=== PATIENT | male | born 1945 | race Caucasian/White ===

== ENCOUNTER 2017-11-12 11:02 | Inpatient (IN) | payer OTHER ==
--- NOTE | 2017-11-12 11:16 | PDOC ---
History of Present Illness - General Chief Complaint: Urinary Problem Stated Complaint: URINARY RETENTION Time Seen by Provider: 11/12/17 11:10 History Source: Patient Exam Limitations: No Limitations - History of Present Illness Initial Comments: 11/12/17 11:12 72y M hx of htn, bph (not on meds), presents with complaint of urinary retention. Pt notes he has not urinated since going to bed on . Pt notes significant lower abdominal pain, denies any fever/chills, n/v, dysuria, back pain diarrhea. no hx of retention before. no new meds recently beside takign tumeric for his arthritis Past History - Past Medical History Allergies/Adverse Reactions: Allergies Allergy/AdvReac Type Severity Reaction Status Date / Time No Known Allergies Allergy Verified 11/12/17 11:28 Home Medications: Ambulatory Orders Escitalopram Oxalate [Lexapro -] 10 mg PO DAILY 11/12/17 Metoprolol Succinate [Toprol Xl] 50 mg PO DAILY 11/12/17 Serzone (Non-Formulary) - HS 11/12/17 Triamterene/Hydrochlorothiazid [Triamterene-Hctz 37.5-25 mg Tb] 1 each PO DAILY 11/12/17 Review of Systems - Review of Systems Able to Perform ROS?: Yes Comments:: 11/12/17 11:59 Constitutional - no reported Fever, Chills, HEENT: no reported vision changes, sore throat Respiratory: no reported cough, sob, hemoptysis Cardiac: no reported chest pain, palpitations, light headedness, leg swelling Abd/GI: no reported abd pain, nausea, vomiting, blood per rectum, melena, diarrhea : +urinary retention no reported dysuria, frequency, discharge Musculskelatal - no reported back pain, joint swelling skin - no reported bruising, erythema, rash neurological: no reported headache, numbness, focal weakness, tingling, ataxia, hematologic: no reported easy bruising, easy bleeding *Physical Exam - Physical Exam Comments: 11/12/17 11:59 GENERAL: The patient is awake, alert, and fully oriented, Nontoxic - in no acute distress. HEAD: Normocephalic, atraumatic. LUNGS: Breath sounds equal, clear to auscultation bilaterally. No wheezes, no rhonchi, no rales. HEART: Regular rate and rhythm, normal S1 and S2 without murmur, rub or gallop. ABDOMEN: Soft, distended and mildly tender suprapubic region, no rebound/ guarding, no cva tenderness EXTREMITIES: Normal range of motion, no edema. NEUROLOGICAL: No facial assymetry, Normal speech, PSYCH: Normal mood, normal affect. SKIN: Warm, Dry, normal turgor, ED Treatment Course - LABORATORY CBC & Chemistry Diagram: 11/12/17 11:40 11/12/17 11:40 Medical Decision Making - Medical Decision Making 11/12/17 12:00 Suspect urinary retention due to bph - calderon catheter placed upon arrival with drainage of 1100cc of urine with immediate relief of his symptoms. Will check for UTI, will check basic chemistry to rule out obstructive neprhopathy/AUDELIA pt has a urologist in [place] at [place] 11/12/17 12:22 pts labs reivewed noted for Cr of 3.5 - pt has no known kidney problems as far as he knows ?obstructive neprhopathy vs toxic effect from tumeric will discuss with his PMD to see his baseline Cr (Dr. Uzair Riley, ) 11/12/17 12:[address] adame - states he is fairly certain pt does not have any renal pathology agree with observation/hydration will dw hospitalist service 11/12/17 13:35 case vandana matos admssio for [facility] r[facility] Case discussed in detail with admitting physician including history, physical exam and ancillary studies. Admitting physician has assumed care for the patient, will follow all pending diagnostics and will complete the evaluation and treatment. *DC/Admit/Observation/Transfer Diagnosis at time of Disposition: AUDELIA (acute kidney injury), Urinary obstruction - Discharge Dispostion Condition at time of disposition: Guarded Decision to Admit order: Yes - Referrals Referrals: Uzair Brand MD [Primary Care Provider] - - Patient Instructions - Post Discharge Activity
[2017-11-12 11:28] VITALS: BMI 27.4
[2017-11-12 11:34] LABS: URINE APPEARANCE Clear; URINE BILIRUBIN Negative (NEGATIVE); URINE GLUCOSE (UA) Negative (NEGATIVE); URINE KETONE Negative (NEGATIVE); URINE LEUK ESTERASE Negative (NEGATIVE); URINE NITRITE Negative (NEGATIVE); URINE PROTEIN Negative (NEGATIVE); URINE UROBILINOGEN 0.2 (0.2-1.0)
[2017-11-12 11:38] LABS: URINE COLOR AMBER
[2017-11-12 12:06] LABS: ALK PHOS 52 U/L (32-92); ANION GAP 7 (8-16); BLOOD UREA NITROGEN 37 mg/dl (7-18); CALCIUM 9.6 mg/dl (8.4-10.2); CHLORIDE 106 mmol/L (98-107); CO2 24 mmol/L (22-28); CREATININE 3.4 mg/dl (0.6-1.3); GLUCOSE,RANDOM 145 mg/dl (74-106); POTASSIUM 3.8 mmol/L (3.5-5.1); SGOT/AST 29 U/L (10-42); SGPT/ALT 26 U/L (10-40); SODIUM 137 mmol/L (136-145); TOT PROT 7.1 g/dl (6.4-8.3)
[2017-11-12 12:07] LABS: HEMATOCRIT 42.4 % (35.4-49); HEMOGLOBIN 14.6 GM/dl (11.7-16.9); MCH 30.9 pg (25.7-33.7); MCHC 34.5 g/dl (32.0-35.9); MEAN CELL VOLUME 89.6 fl (80-96); PLATELET COUNT 281 K/MM3 (134-434); RBC 4.74 M/mm3 (4.00-5.60); RDW 12.3 % (11.9-15.9); WHITE BLOOD COUNT 14.4 K/mm3 (4.0-10.8)
[2017-11-12 12:08] LABS: ADD RBC MORPHOLOGY YES
[2017-11-12] MEDS ORDERED: SODIUM CHLORIDE 1,000 ML IV ONE (12:23)
[2017-11-12 12:36] LABS: PLATELET ESTIMATE ADEQUATE
[2017-11-12] MEDS: HEPARIN NA (PORCINE) 5,000 UNITS/ML 1ML VIAL SQ SCH ×2 (15:54→22:17)
[2017-11-12] MEDS: SODIUM CHLORIDE 1,000 ML IV SCH (15:55)
[2017-11-12] MEDS ORDERED: TAMSULOSIN HCL 0.4 MG CAP.ER.24H (FP) PO ONE (23:30)
--- NOTE | 2017-11-12 23:37 | HP ---
CHIEF COMPLAINT: urinary retention PCP: Dr. Uzair Riley, HISTORY OF PRESENT ILLNESS: This is a 72 year old male with a significant past medical history of BPH who presented to the ED this morning with a report of no urine output since bedtime 11/10/17. Pt with no complaints on exam. Reports pain in abdomen resolved once Marino was placed. Pt states he has a long standing h/o BPH and follows with Dr. June at [place]. He has had multiple prostate biopsies which were all negative and recently had an MRI but has not received any results of it. ER course was notable for: (1) FC placed with >1000cc output (2) WBC 14.1 (3) Cr 3.4 Recent Travel: pt denies PAST MEDICAL HISTORY: HTN, BPH, colon polyps PAST SURGICAL HISTORY: eye surgery L hernia repair 2000 tonsillectomy age 7 Social History: Smoking: pt denies Alcohol: 1-2 drinks 1-2 times/wk Drugs: pt denies Family History: mother age 85, in her sleep, h/o osteoporosis, HTN father age 87, complications of CVA, h/o MD age 60 identical twin brother , commited suicide age 66 Allergies Penicillins Allergy (Intermediate, Verified 11/12/17 14:40) Itching HOME MEDICATIONS: 3 Medication Instructions Recorded Escitalopram Oxalate [Lexapro -] 10 mg PO DAILY 11/12/17 Metoprolol Succinate [Toprol Xl] 50 mg PO DAILY 11/12/17 Serzone (Non-Formulary) - HS 11/12/17 Triamterene/Hydrochlorothiazid 1 each PO DAILY 11/12/17 [Triamterene-Hctz 37.5-25 mg Tb] REVIEW OF SYSTEMS CONSTITUTIONAL: Absent: fever, chills, diaphoresis, generalized weakness, malaise, loss of appetite, weight change HEENT: Absent: rhinorrhea, nasal congestion, throat pain, throat swelling, difficulty swallowing, mouth swelling, ear pain, eye pain, visual changes CARDIOVASCULAR: Absent: chest pain, syncope, palpitations, irregular heart rate, lightheadedness , peripheral edema RESPIRATORY: Absent: cough, shortness of breath, dyspnea with exertion, orthopnea, wheezing, stridor, hemoptysis GASTROINTESTINAL: Present: abdominal pain Absent: abdominal distension, nausea, vomiting, diarrhea, constipation, melena, hematochezia GENITOURINARY: Present: urinary retention Absent: dysuria, frequency, urgency, hesitancy, hematuria, flank pain, genital pain MUSCULOSKELETAL: Absent: myalgia, arthralgia, joint swelling, back pain, neck pain SKIN: Absent: rash, itching, pallor HEMATOLOGIC/IMMUNOLOGIC: Absent: easy bleeding, easy bruising, lymphadenopathy, frequent infections ENDOCRINE: Absent: unexplained weight gain, unexplained weight loss, heat intolerance, cold intolerance NEUROLOGIC: Absent: headache, focal weakness or paresthesias, dizziness, unsteady gait, seizure, mental status changes, bladder or bowel incontinence PSYCHIATRIC: Absent: anxiety, depression, suicidal or homicidal ideation, hallucinations. PHYSICAL EXAMINATION Vital Signs - 24 hr 3 11/12/17 11/12/17 11/12/17 11:04 14:50 15:14 Temperature 98.4 F 98.2 F 98.2 F Pulse Rate 82 82 82 Respiratory 18 18 18 Rate Blood Pressure 153/86 152/65 152/65 O2 Sat by Pulse 99 Oximetry (%) 3 11/12/17 21:50 Temperature 98.6 F Pulse Rate 71 Respiratory 16 Rate Blood Pressure 134/63 O2 Sat by Pulse 95 Oximetry (%) GENERAL: Awake, alert, and fully oriented, in no acute distress. HEAD: Normal with no signs of trauma. EYES: Pupils equal, round and reactive to light, extraocular movements intact, sclera anicteric, conjunctiva clear. No lid lag. EARS, NOSE, THROAT: Ears normal, nares patent, oropharynx clear without exudates. Moist mucous membranes. NECK: Normal range of motion, supple without lymphadenopathy, JVD, or masses. LUNGS: Breath sounds equal, clear to auscultation bilaterally. No wheezes, and no crackles. No accessory muscle use. HEART: Regular rate and rhythm, normal S1 and S2 without murmur, rub or gallop. ABDOMEN: Soft, nontender, not distended, normoactive bowel sounds, no guarding, no rebound, no masses. No hepatomegaly or splenomegaly. FC in place MUSCULOSKELETAL: Normal range of motion at all joints. No bony deformities or tenderness. No CVA tenderness. UPPER EXTREMITIES: 2+ pulses, warm, well-perfused. No cyanosis. No clubbing. No peripheral edema. LOWER EXTREMITIES: 2+ pulses, warm, well-perfused. No calf tenderness. No peripheral edema. NEUROLOGICAL: Cranial nerves II-XII intact. Normal speech. Normal gait. PSYCHIATRIC: Cooperative. Good eye contact. Appropriate mood and affect. SKIN: Warm, dry, normal turgor, no rashes or lesions noted, normal capillary refill. Laboratory Results - last 24 hr 3 11/12/17 11/12/17 11/12/17 11:15 11:40 11:40 WBC 14.4 H RBC 4.74 Hgb 14.6 Hct 42.4 MCV 89.6 MCH 30.9 MCHC 34.5 RDW 12.3 Plt Count 281 MPV 8.0 Absolute Neuts (auto) 13.1 Neutrophils % No Result Required. Neutrophils % (Manual) 87.0 H Band Neutrophils % 2.0 Lymphocytes % No Result Required. Lymphocytes % (Manual) 6.0 L Monocytes % (Manual) 5 Platelet Estimate Adequate Sodium 137 Potassium 3.8 Chloride 106 Carbon Dioxide 24 Anion Gap 7 L BUN 37 H Creatinine 3.4 H Creat Clearance w eGFR 17.94 Random Glucose 145 H Calcium 9.6 Total Bilirubin 1.0 AST 29 ALT 26 Alkaline Phosphatase 52 Total Protein 7.1 Albumin 4.0 Urine Color Natalia Urine Appearance Clear Urine pH 7.0 Ur Specific [place] 1.015 Urine Protein Negative Urine Glucose (UA) Negative Urine Ketones Negative Urine Blood 1+ H Urine Nitrite Negative Urine Bilirubin Negative Urine Urobilinogen 0.2 Ur Leukocyte Esterase Negative Urine RBC 5-8 Radiology Reports Renal ultrasound IMPRESSION: Small amount of right perinephric fluid. Possible right parapelvic cyst versus extrarenal pelvis Left kidney demonstrates 3 large cysts Reported By: Jacques Palomino MD 11/12/17 7694 ASSESSMENT/PLAN: 72yM with PMH HTN, BPH, depression presented to the ED with inability to urinate x 36 hours. urinary retention - likely due to BPH - FC placed - pt states he was on flomax in past but stopped it because "it didn't work" but is willing to retry - flomax now and daily - pt may f/u with his outpatient urologist once renal function improved AUDELIA - likely due to urinary retention - Repeat labs in am - consider renal consult - hold triamterene/HCTZ - pt states he was taking ibuprofen 800mg BID for his arthritis, advised to dc HTN - cont home toprol, triamterene/HCTZ held due to renal function depression - cont lexapro - serzone nonformulary, pt made aware DVT PPX - heparin SC FEN - NS @ 100cc/hr - bmp in am - renal diet as tolerated Dispo: pt currently requires further inpatient management of his emergent condition Visit type - Emergency Visit Emergency Visit: Yes ED Registration Date: 11/12/17 Care time: The patient presented to the Emergency Department on the above date and was hospitalized for further evaluation of their emergent condition. - New Patient This patient is new to me today: Yes Date on this admission: 11/12/17 - Critical Care Critical Care patient: No Hospitalist Screening - Colonoscopy Questionnaire Colonoscopy Questionnaire: Colonoscopy Questionnaire - Patient: 50 - 75 years old and never had a screening colonoscopy: No History of colon or rectal polyps, or CA: Yes History of IBD, Crohn's disease or UC: No History of abdominal radiation therapy as a child: No - Relative: 1 with colon or rectal CA, or polyps at age 60 or younger: No Colon or rectal CA diagnosed at age 45 or younger: No Multiple relatives with colon or rectal CA: No - Outcome: Screening Result: Positive Screen
[2017-11-13] MEDS: HEPARIN NA (PORCINE) 5,000 UNITS/ML 1ML VIAL SQ SCH ×3 (05:57→21:31)
[2017-11-13 08:29] LABS: ANION GAP 5 (8-16); BLOOD UREA NITROGEN 26 mg/dl (7-18); CALCIUM 8.2 mg/dl (8.4-10.2); CHLORIDE 107 mmol/L (98-107); CO2 28 mmol/L (22-28); CREATININE 1.1 mg/dl (0.6-1.3); GLUCOSE,RANDOM 87 mg/dl (74-106); MAGNESIUM 1.8 mg/dL (1.8-2.4); PHOSPHOROUS 2.5 mg/dl (2.5-4.6); POTASSIUM 3.6 mmol/L (3.5-5.1); SODIUM 140 mmol/L (136-145)
--- NOTE | 2017-11-13 08:58 | PN ---
Physical Exam: SUBJECTIVE: Patient seen and examined. States he could not sleep last night, has OA pain to R foot, other castro no issues. Denies fever, sob, gu discomfort OBJECTIVE: Vital Signs Period Temp Pulse Resp BP Sys/Graff Pulse Ox Last 24 Hr 98.2 F-98.6 F 63-82 16-18 124-153/60-86 95-99 PE Neuro: alert, awake, cn 2-12intact Pulm: CTAB CV: s1 s2 rrr no mrg Abd: s nt nd + bs : calderon clear yellow urine Ext: r foot tenderness + DP pulses no le edema Sodium 140 mmol/L (136-145) 11/13/17 05:45 Potassium 3.6 mmol/L (3.5-5.1) 11/13/17 05:45 Chloride 107 mmol/L (98-107) 11/13/17 05:45 Carbon Dioxide 28 mmol/L (22-28) 11/13/17 05:45 Anion Gap 5 (8-16) L 11/13/17 05:45 BUN 26 mg/dl (7-18) H D 11/13/17 05:45 Creatinine 1.1 mg/dl (0.6-1.3) D 11/13/17 05:45 Creat Clearance w eGFR > 60 (>60) 11/13/17 05:45 Calcium 8.2 mg/dl (8.4-10.2) L 11/13/17 05:45 Total Bilirubin 1.0 mg/dl (0.2-1.0) 11/12/17 11:40 AST 29 U/L (10-42) 11/12/17 11:40 ALT 26 U/L (10-40) 11/12/17 11:40 Alkaline Phosphatase 52 U/L (32-92) 11/12/17 11:40 Total Protein 7.1 g/dl (6.4-8.3) 11/12/17 11:40 Albumin 4.0 g/dl (3.5-5.0) 11/12/17 11:40 Active Medications Generic Name Dose Route Start Last Admin Trade Name Freq PRN Reason Stop Dose Admin Escitalopram Oxalate 10 mg 11/13/17 10:00 Lexapro - PO DAILY SANDRA Heparin Sodium (Porcine) 5,000 unit 11/12/17 14:00 11/13/17 05:57 Heparin - SQ 5,000 unit TID SANDRA Administration Sodium Chloride 1,000 mls @ 100 mls/hr 11/12/17 13:45 11/12/17 15:55 Normal Saline - IV 100 mls/hr ASDIR SANDRA Administration Metoprolol Succinate 50 mg 11/13/17 10:00 Toprol Xl - PO DAILY SANDRA Tamsulosin HCl 0.4 mg 11/13/17 08:30 Flomax - PO DAILY@0830 [facility] Assessment: 72 year old male with pmhx HTN, BPH, depression presented to the ED with inability to urinate x 36 hours. Plan: 1. Acute urinary retention - likely due to BPH - Maintain foey - Continue flomax - Plan: consider dc pt with leg bag and appt to see outpt urologist vs voiding trial with repeat retention risk. Would favor dc home with leg bag and outpt appt SANGE[facility] with Dr. Emanuel June [phone] @ [place] however if prompt appt cannot be made consider urology consult, pt willing to see local urologist 2. AUDELIA - Likely due to urinary retention - Cr improved - Continue IVF - Hold triamterene/HCTZ - Per ED note, pt PCP notes pt does not have renal pathology - Pt states he was taking ibuprofen 800mg BID for his arthritis, advised to dc 3. HTN - cont home toprol, triamterene/HCTZ held due to renal function 4. Depression - Cont lexapro - Serzone nonformulary, pt made aware 5. DVT PPX - Heparin sq Visit type - Emergency Visit Emergency Visit: Yes ED Registration Date: 11/12/17 Care time: The patient presented to the Emergency Department on the above date and was hospitalized for further evaluation of their emergent condition. - New Patient This patient is new to me today: Yes Date on this admission: 11/13/17 - Critical Care Critical Care patient: No
[2017-11-13] MEDS: TAMSULOSIN HCL 0.4 MG CAP.ER.24H (FP) PO SCH (09:04)
[2017-11-13] MEDS: ESCITALOPRAM OXALATE 10 MG TABLET (FP) PO SCH (09:04)
[2017-11-13] MEDS ORDERED: ACETAMINOPHEN 1000 MG/100 ML VIAL (NON FORMULARY) IVPB PRN (09:29)
[2017-11-13 10:12] LABS: BASO % 0.6 % (0-2.0); EOS % 1.5 % (0-4.5); HEMATOCRIT 37.8 % (35.4-49); HEMOGLOBIN 12.7 GM/dL (11.7-16.9); LYMPH % 13.4 % (8-40); MCH 30.8 pg (25.7-33.7); MCHC 33.5 g/dl (32.0-35.9); MEAN CELL VOLUME 91.9 fl (80-96); MEAN PLT VOLUME 8.7 fl (7.5-11.1); MONO % 9.7 % (3.8-10.2); NEUT % 74.8 % (42.8-82.8); PLATELET COUNT 208 K/MM3 (134-434); RBC 4.11 M/mm3 (4.00-5.60); RDW 13.3 % (11.9-15.9); WHITE BLOOD COUNT 9.7 K/mm3 (4.0-10.0)
[2017-11-13] MEDS: SODIUM CHLORIDE 1,000 ML IV SCH (13:45)
[2017-11-13] MEDS ORDERED: SENNOSIDES 8.6MG TABLET (FP) PO PRN (22:00)
[2017-11-14] MEDS: HEPARIN NA (PORCINE) 5,000 UNITS/ML 1ML VIAL SQ SCH (06:36)
[2017-11-14 07:47] LABS: ANION GAP 4 (8-16); BLOOD UREA NITROGEN 18 mg/dl (7-18); CHLORIDE 107 mmol/L (98-107); CO2 27 mmol/L (22-28); CREATININE 0.9 mg/dl (0.6-1.3); GLUCOSE,RANDOM 100 mg/dl (74-106); POTASSIUM 3.6 mmol/L (3.5-5.1); SODIUM 138 mmol/L (136-145)
--- NOTE | 2017-11-14 08:21 | DS ---
Physical Exam: SUBJECTIVE: Patient seen and examined OBJECTIVE:This is a 72 year old male with a significant past medical history of BPH who presented to the ED this morning with a report of no urine output since bedtime 11/10/17. Pt with no complaints on exam. Reports pain in abdomen resolved once Calderon was placed. Pt states he has a long standing h/o BPH and follows with Dr. June at [place]. He has had multiple prostate biopsies which were all negative and recently had an MRI but has not received any results of it. ER course was notable for: (1) FC placed with >1000cc output (2) WBC 14.1 (3) Cr 3.4 Vital Signs Period Temp Pulse Resp BP Sys/Graff Pulse Ox Last 24 Hr 97.9 F-99.0 F 68-77 18-19 125-144/50-63 92-98 PHYSICAL EXAM GENERAL: The patient is awake, alert, and fully oriented, in no acute distress. HEAD: Normal with no signs of trauma. EYES: PERRL, extraocular movements intact, sclera anicteric, conjunctiva clear. ENT: Ears normal, nares patent, oropharynx clear without exudates, moist mucous membranes. NECK: Trachea midline, full range of motion, supple. LUNGS: Breath sounds equal, clear to auscultation bilaterally, no wheezes, no crackles, no accessory muscle use. HEART: Regular rate and rhythm, S1, S2 without murmur, rub or gallop. ABDOMEN: Soft, nontender, nondistended, normoactive bowel sounds, no guarding, no rebound, no hepatosplenomegaly, no masses. EXTREMITIES: 2+ pulses, warm, well-perfused, no edema. NEUROLOGICAL: Cranial nerves II through XII grossly intact. Normal speech, gait not observed. PSYCH: Normal mood, normal affect. SKIN: Warm, dry, normal turgor, no rashes or lesions noted. LABS Laboratory Results - last 24 hr 11/13/17 11/13/17 11/14/17 05:45 05:45 07:15 WBC 9.7 RBC 4.11 Hgb 12.7 Hct 37.8 MCV 91.9 MCH 30.8 MCHC 33.5 RDW 13.3 Plt Count 208 MPV 8.7 Absolute Neuts (auto) 7.2 Neutrophils % 74.8 Lymphocytes % 13.4 Monocytes % 9.7 Eosinophils % 1.5 Basophils % 0.6 Nucleated RBC % 0 Sodium 140 138 Potassium 3.6 3.6 Chloride 107 107 Carbon Dioxide 28 27 Anion Gap 5 L 4 L BUN 26 H D 18 D Creatinine 1.1 D 0.9 Creat Clearance w eGFR > 60 > 60 Random Glucose 87 D 100 Calcium 8.2 L 8.0 L Phosphorus 2.5 Magnesium 1.8 HOSPITAL COURSE: Date of Admission:11/12/17 Date of Discharge: 11/14/17 Discharge Summary Reason For Visit: URINARY RETENTION Current Active Problems AUDELIA (acute kidney injury) (Acute) Urinary obstruction (Acute) Condition: Guarded - Instructions Diet, Activity, Other Instructions: you have a scheduled appointment with the urologist at [facility] ( [place]) 11/15/2017 at 11am please keep the calderon cather in place, do not remove the cather until you are evaluated by the urologist tomorrow. continue flomax in the morning and continue all medications as prescribed if any new or persistent symptoms develop please return to the emergency department Referrals: Emanuel June [Non Staff, Medical] - 11/15/17 11:00 am Uzair Brand MD [Primary Care Provider] - Disposition: HOME - Home Medications Comprehensive Discharge Medication List: Ambulatory Orders Escitalopram Oxalate [Lexapro -] 10 mg PO DAILY 11/12/17 Metoprolol Succinate [Toprol Xl] 50 mg PO DAILY 11/12/17 Serzone (Non-Formulary) - HS 11/12/17 Triamterene/Hydrochlorothiazid [Triamterene-Hctz 37.5-25 mg Tb] 1 each PO DAILY 11/12/17
[2017-11-14] MEDS: ESCITALOPRAM OXALATE 10 MG TABLET (FP) PO SCH (09:13)
[2017-11-14] MEDS: TAMSULOSIN HCL 0.4 MG CAP.ER.24H (FP) PO SCH (09:13)
[2017-11-14 09:44] VITALS: BP 149/78; PULSE 63; TEMP 98.2
== END 2017-11-14 13:15 | disposition home or self-care (01) | DRG 683 ==
LOC: FER 11:02 → FM/S 13:22 → UNDOADMIN 14:32
PROVIDERS: ADMIT Internal Medicine; ATTEND Nurse Practitioner Family
DX: N17.9 Acute kidney failure, unspecified (principal); Q61.02 Congenital multiple renal cysts; N40.1 Benign prostatic hyperplasia with lower urinary tract symptoms; R33.9 Retention of urine, unspecified; I10 Essential (primary) hypertension; F32.9 Major depressive disorder, single episode, unspecified
CPT/HCPCS: 36415; 76775-TC; 80048; 80053; 81003; 81015; 83735; 84100; 85025; 87086; 99283-25; J0131; J1644; J7030